=== PATIENT | female | born 1975 | race Caucasian/White ===

== ENCOUNTER → 2018-02-17 07:37 | Outpatient (CLI) | payer OTHER, SELFPAY ==
--- NOTE | 2018-02-17 07:38 | DI.MG.S_ITS ---
BILATERAL DIGITAL SCREENING MAMMOGRAM 3D/2D WITH CAD: 02/17/2018 CLINICAL: Routine screening. Baseline exam. No prior exams were available for comparison. The tissue of both breasts is heterogeneously dense. This may lower the sensitivity of mammography. Current study was also evaluated with a Computer Aided Detection (CAD) system. There is an asymmetry in the right breast middle depth outer region seen on the craniocaudal view only. There also is an asymmetry in the right breast middle depth upper region seen on the mediolateral oblique view only. No other significant masses, calcifications, or other findings are seen in either breast. IMPRESSION: INCOMPLETE: NEEDS ADDITIONAL IMAGING EVALUATION The asymmetry in the right breast middle depth outer region seen on the craniocaudal view only is indeterminate. Additional views with possible ultrasound are recommended. The asymmetry in the right breast middle depth upper region seen on the mediolateral oblique view only is indeterminate. Additional views with possible ultrasound are recommended. This exam was interpreted at Station ID: [id number]. NOTE: For mammograms, a report in lay terms will be sent to the patient. Approximately 15% of breast malignancies will not be visualized mammographically. In the management of a palpable breast mass, a negative mammogram must not discourage biopsy of a clinically suspicious lesion. Electronically Signed By: Christiano Case M.D. ecl/:02/17/2018 21:41:21 letter sent: Additional Imaging Needed ACR BI-RADS Category 0: Incomplete 3340F
== END ==
PROVIDERS: Family Provider Family Medicine; PCP Family Medicine; Visit Provider Family Medicine
DX: Z12.31 Encounter for screening mammogram for malignant neoplasm of breast (principal)
CPT/HCPCS: 77063; 77067

== ENCOUNTER → 2018-03-02 13:44 | Outpatient (CLI) | payer OTHER, SELFPAY ==
--- NOTE | 2018-03-02 13:46 | DI.US.S_ITS ---
ULTRASOUND OF RIGHT BREAST: 03/02/2018 CLINICAL: Follow up from addtional views. Comparison is made to exams dated: 02/17/2018 mammogram and 03/02/2018 mammogram - [facility]. Real-time and Doppler ultrasound of the right breast were performed. Valenzuela scale images of the real-time examination were reviewed. There is no ultrasound correlate mass or abnormality for the persistent focal asymmetry with calcifications in the right breast upper outer aspect middle depth seen on diagnostic mammography of 03/02/2018. No other masses or abnormalities were identified on targeted ultrasound of the upper outer right breast. IMPRESSION: SUSPICIOUS OF MALIGNANCY - FOLLOW-UP RECOMMENDED 1) No ultrasound correlate mass or abnormality identified for the persistent focal asymmetry with calcifications in the right breast upper outer aspect middle depth seen on diagnostic mammography of 03/02/2018. A stereotactic or tomosynthesis guided biopsy is recommended. These results were discussed with the patient in person by attending radiologist Dr. Dougie Cleaning of [facility] at the time of the exam. This exam was interpreted at Station ID: [id number]. Electronically Signed By: Christiano Case M.D. ecl/:03/02/2018 17:20:34 letter sent: Biopsy Required Ultrasound BI-RADS: 4a Suspicious abnormality - low suspicion for malignancy
--- NOTE | 2018-03-02 13:46 | DI.MG.S_ITS ---
UNILATERAL RIGHT DIGITAL DIAGNOSTIC MAMMOGRAM 3D/2D WITH ADDITIONAL VIEWS: 03/02/2018 CLINICAL: Additional evaluation requested from prior study. [facility] The tissue of the right breast is heterogeneously dense. This may lower the sensitivity of mammography. There is a persistent focal asymmetry with calcifications in the right breast upper outer aspect middle depth, with calcifications best seen on RCC spot compression tomosynthesis image . No other significant masses or calcifications are seen in the breast. IMPRESSION: INCOMPLETE: NEEDS ADDITIONAL IMAGING EVALUATION 1) The focal asymmetry with calcifications in the right breast is indeterminate. A targeted ultrasound is recommended. If no ultrasound correlate is identified, then a stereotactic or tomosynthesis guided biopsy is recommended of this focal asymmetry. This exam was interpreted at Station ID: [id number]. NOTE: For mammograms, a report in lay terms will be sent to the patient. Approximately 15% of breast malignancies will not be visualized mammographically. In the management of a palpable breast mass, a negative mammogram must not discourage biopsy of a clinically suspicious lesion. Electronically Signed By: Christiano Case M.D. ecl/:03/02/2018 17:17:49 letter sent: Additional Imaging Needed ACR BI-RADS Category 0: Incomplete 3340F
== END ==
PROVIDERS: Family Provider Family Medicine; PCP Family Medicine; Visit Provider Family Medicine
DX: R92.1 Mammographic calcification found on diagnostic imaging of breast (principal)
CPT/HCPCS: 76642; 77065; G0279

== ENCOUNTER → 2019-03-01 16:16 | Outpatient (CLI) | payer OTHER, SELFPAY ==
--- NOTE | 2019-03-01 | DI.MG.S_ITS ---
BILATERAL DIGITAL SCREENING MAMMOGRAM 3D/2D WITH CAD: 03/01/2019 CLINICAL: Routine screening. Comparison is made to exams dated: 03/17/2018 stereotactic biopsy, 03/17/2018 mammogram - [facility] [place] [place], and 03/02/2018 mammogram [facility]. The tissue of both breasts is heterogeneously dense. This may lower the sensitivity of mammography. Current study was also evaluated with a Computer Aided Detection (CAD) system. No significant masses, calcifications, or other findings are seen in either breast. There has been no significant interval change. IMPRESSION: NEGATIVE There is no mammographic evidence of malignancy. A 1 year screening mammogram is recommended. This exam was interpreted at Station ID: [id number]. NOTE: For mammograms, a report in lay terms will be sent to the patient. Approximately 15% of breast malignancies will not be visualized mammographically. In the management of a palpable breast mass, a negative mammogram must not discourage biopsy of a clinically suspicious lesion. Electronically Signed By: Paulina kendall/celina:03/01/2019 17:12:09 letter sent: Normal Exam ACR BI-RADS Category 1: Negative 3341F
== END ==
PROVIDERS: PCP Family Medicine; Visit Provider Family Medicine
DX: Z12.31 Encounter for screening mammogram for malignant neoplasm of breast (principal)
CPT/HCPCS: 77063; 77067

== ENCOUNTER → 2020-03-27 16:38 | Outpatient (CLI) | payer BC, SELFPAY ==
--- NOTE | 2020-03-27 16:54 | DI.MG.S_ITS ---
Patient Name: AVERY LUU date: 1975 Sex: F Attending Physician: Danette Indications: Date: 03/27/2020 16:46 At the request of: BANDAR CHAVARRIA Procedure: MM screening mammo BI BILATERAL DIGITAL SCREENING MAMMOGRAM 3D/2D WITH CAD: 03/27/2020 CLINICAL: Routine screening. Comparison is made to exams dated: 03/01/2019 mammogram [facility], 03/17/2018 mammogram - [facility], 03/02/2018 mammogram, and 02/17/2018 mammogram [facility]. The tissue of both breasts is extremely dense, which lowers the sensitivity of mammography. Current study was also evaluated with a Computer Aided Detection (CAD) system. There is an oval equal density mass with an obscured and circumscribed margin in the right breast at 8 o'clock anterior depth. No other significant masses, calcifications, or other findings are seen in either breast. IMPRESSION: INCOMPLETE: NEEDS ADDITIONAL IMAGING EVALUATION The oval equal density mass in the right breast is indeterminate. Mediolateral and spot compression views as well as additional views with possible ultrasound are recommended. This exam was interpreted at Station ID: [id number]. NOTE: For mammograms, a report in lay terms will be sent to the patient. Approximately 15% of breast malignancies will not be visualized mammographically. In the management of a palpable breast mass, a negative mammogram must not discourage biopsy of a clinically suspicious lesion. Electronically Signed By: Donaldo gibson/celina:03/28/2020 08:22:34 letter sent: Additional Imaging Needed Continued Report - Page 2 of 2 Patient Name: AVERY LUU date: 1975 Sex: F Attending Physician: Danette Indications: Date: 03/27/2020 16:46 At the request of: BANDAR CHAVARRIA Procedure: MM screening mammo BI ACR BI-RADS Category 0: Incomplete 3340F
== END ==
PROVIDERS: PCP Family Medicine; Referring Provider Family Medicine; Visit Provider Family Medicine
DX: Z12.31 Encounter for screening mammogram for malignant neoplasm of breast (principal)
CPT/HCPCS: 77063; 77067

== ENCOUNTER → 2020-05-15 08:35 | Outpatient (CLI) | payer BC, SELFPAY ==
--- NOTE | 2020-05-15 | DI.MG.S_ITS ---
UNILATERAL RIGHT DIGITAL DIAGNOSTIC MAMMOGRAM 3D/2D WITH ADDITIONAL VIEWS: 05/15/2020 CLINICAL: Additional evaluation requested from prior study. Comparison is made to exams dated: 03/27/2020 mammogram, 03/01/2019 mammogram - [facility], 03/17/2018 stereotactic biopsy, and 03/17/2018 mammogram - [facility]. The tissue of right breast is extremely dense, which lowers the sensitivity of mammography. There is a 1 cm oval equal density mass with an obscured and circumscribed margin in the right breast at 9 o'clock anterior depth. This is seen in additional views. No other significant masses or calcifications are seen in the breast. IMPRESSION: INCOMPLETE: NEEDS ADDITIONAL IMAGING EVALUATION The 1 cm oval equal density mass in the right breast is indeterminate. An ultrasound is recommended. This exam was interpreted at Station ID: [id number]. NOTE: For mammograms, a report in lay terms will be sent to the patient. Approximately 15% of breast malignancies will not be visualized mammographically. In the management of a palpable breast mass, a negative mammogram must not discourage biopsy of a clinically suspicious lesion. SUMMARY: Targeted ultrasound is recommended for further evaluation and will be scheduled immediately following this exam. Electronically Signed By: Zain fair/celina:05/15/2020 16:13:12 ACR BI-RADS Category 0: Incomplete 3340F
--- NOTE | 2020-05-15 | DI.US.S_ITS ---
LIMITED ULTRASOUND OF RIGHT BREAST AND AXILLA: 05/15/2020 CLINICAL: Patient returns today to evaluate a focal asymmetry in the right breast. Comparison is made to exams dated: 03/27/2020 mammogram, 03/01/2019 mammogram - [facility], 03/17/2018 mammogram - [facility], 03/02/2018 ultrasound, and 05/15/2020 [facility] - [facility]. Color flow ultrasound of the right breast 9-10 o'clock, and axilla regions was performed. Valenzuela scale images of the real-time examination were reviewed. There is a 0.6 cm x 0.5 cm x 0.4 cm oval complicated cyst with a smooth internal wall in the right breast at 10 o'clock posterior depth 5 cm from the nipple. This oval complicated cyst is hypoechoic with internal echoes and posterior acoustic enhancement. This correlates as an incidental finding but was not seen on the prior mammogram. There also is a benign 0.9 cm x 0.9 cm x 0.4 cm oval simple cyst with a smooth internal wall in the right breast at 9 o'clock middle depth 4 cm from the nipple. This oval simple cyst is anechoic with posterior acoustic enhancement. This correlates with mammography findings. No significant abnormalities were seen sonographically in the right axilla. IMPRESSION: PROBABLY BENIGN The 0.6 cm x 0.5 cm x 0.4 cm oval complicated cyst in the right breast at 10 o'clock posterior depth is probably benign. A follow-up ultrasound in 6 months is recommended. The 0.9 cm x 0.9 cm x 0.4 cm oval simple cyst in the right breast at 9 o'clock middle depth is benign. A follow-up right ultrasound in 6 months is recommended to demonstrate stability. This exam was interpreted at Station ID: [id number]. Electronically Signed By: Zain fair/celina:05/15/2020 16:18:12 letter sent: Followup Recommended Ultrasound BI-RADS: 3 Probably benign
== END ==
PROVIDERS: PCP Family Medicine; Referring Provider Family Medicine; Visit Provider Family Medicine
DX: R92.8 Other abnormal and inconclusive findings on diagnostic imaging of breast (principal); N60.01 Solitary cyst of right breast
CPT/HCPCS: 76642; 77065; G0279

== ENCOUNTER → 2020-11-26 14:45 | Outpatient (CLI) | payer BC, SELFPAY ==
--- NOTE | 2020-11-26 14:46 | DI.US.S_ITS ---
PROCEDURE: US BREAST RT LIMITED COMPARISON: [facility], BREAST RT LIMITED, 05/15/2020, 9:13. INDICATIONS: 6 MONTH FOLLOW-UP FINDINGS: IMPRESSION: Dictated by: Indio Hicks M.D. on 11/26/2020 at 15:59 Approved by: Indio Hicks M.D. on 11/26/2020 at 16:03
--- NOTE | 2020-11-26 14:58 | DI.US.S_ITS ---
Date: 11/26/2020 14:58 At the request of: BANDAR CHAVARRIA Procedure: US breast RT limited ULTRASOUND OF RIGHT BREAST: 11/26/2020 CLINICAL: 6 month follow-up of cysts. Comparison is made to exams dated: 05/15/2020 mammogram, 05/15/2020 ultrasound, 03/27/2020 mammogram, 03/01/2019 mammogram - [facility], 03/17/2018 stereotactic biopsy, and 03/17/2018 mammogram - [facility]. Doppler ultrasound of the right breast was performed. Valenzuela scale images of the real-time examination were reviewed. There is a benign 0.7 cm x 0.6 cm x 0.3 cm oval simple cyst with a smooth internal wall in the right breast at 9 o'clock middle depth 4 cm from the nipple. This oval simple cyst is anechoic with posterior acoustic enhancement. This abnormality is decreased in size and correlates with mammography findings. There also is a stable benign 0.6 cm x 0.6 cm x 0.4 cm oval complicated cyst with a smooth internal wall in the right breast at 10 o'clock posterior depth 5 cm from the nipple. This oval complicated cyst is hypoechoic with internal echoes and posterior acoustic enhancement. This correlates as an incidental finding but was not seen on the prior mammogram. IMPRESSION: BENIGN There is no sonographic evidence of malignancy. The 0.7 cm x 0.6 cm x 0.3 cm oval simple cyst in the right breast at 9 o'clock middle depth is benign. The stable 0.6 cm x 0.6 cm x 0.4 cm oval complicated cyst in the right breast at 10 o'clock posterior depth is benign. Return to annual mammogram screening which is due in 6 months is recommended. This exam was interpreted at Station ID: [id number]. Electronically Signed By: Indio Hicks acr/:11/26/2020 16:03:03 letter sent: Normal Exam Ultrasound BI-RADS: 2 Benign
== END ==
PROVIDERS: PCP Family Medicine; Referring Provider Family Medicine; Visit Provider Family Medicine
DX: R92.8 Other abnormal and inconclusive findings on diagnostic imaging of breast (principal); N60.01 Solitary cyst of right breast
CPT/HCPCS: 76642

== ENCOUNTER → 2021-09-04 08:10 | Outpatient (CLI) | payer OTHER, SELFPAY ==
--- NOTE | 2021-09-04 | DI.MG.S_ITS ---
BILATERAL DIGITAL SCREENING MAMMOGRAM 3D/2D WITH CAD: 09/04/2021 CLINICAL: Routine screening. Comparison is made to exams dated: 05/15/2020 mammogram, 03/27/2020 mammogram, and 03/01/2019 mammogram - [facility]. The tissue of both breasts is heterogeneously dense. This may lower the sensitivity of mammography. Current study was also evaluated with a Computer Aided Detection (CAD) system. No significant masses, calcifications, or other findings are seen in either breast. There has been no significant interval change. IMPRESSION: NEGATIVE There is no mammographic evidence of malignancy. A 1 year screening mammogram is recommended. This exam was interpreted at Station ID: [id number]. NOTE: For mammograms, a report in lay terms will be sent to the patient. Approximately 15% of breast malignancies will not be visualized mammographically. In the management of a palpable breast mass, a negative mammogram must not discourage biopsy of a clinically suspicious lesion. Electronically Signed By: Jeffrey richardson/celina:09/04/2021 09:56:25 letter sent: Normal Exam ACR BI-RADS Category 1: Negative 3341F
== END ==
PROVIDERS: PCP Family Medicine; Referring Provider Family Medicine; Visit Provider Family Medicine
DX: Z12.31 Encounter for screening mammogram for malignant neoplasm of breast (principal)
CPT/HCPCS: 77063; 77067

== ENCOUNTER → 2023-02-03 12:59 | Outpatient (CLI) | payer OTHER, SELFPAY ==
--- NOTE | 2023-02-03 13:00 | DI.MG.S_ITS ---
BILATERAL DIGITAL SCREENING MAMMOGRAM 3D/2D WITH CAD: 02/03/2023 CLINICAL: Routine screening. Comparison is made to exams dated: 09/04/2021 mammogram, 03/27/2020 mammogram, and 03/01/2019 mammogram - [facility]. Both breasts are heterogeneously dense, which may obscure small masses (category c / 51-75% glandular tissue). Current study was also evaluated with a Computer Aided Detection (CAD) system. No significant masses, calcifications, or other findings are seen in either breast. There has been no significant interval change. IMPRESSION: NEGATIVE There is no mammographic evidence of malignancy. A 1 year screening mammogram is recommended. Based on the Tyrer Cuzick model (a risk assessment model) the patient's lifetime risk is 15.8% and her 10 year risk is 3.6%. According to the ACR, ACS, and NCCN guidelines, an annual breast MRI exam along with mammogram is recommended if the patient's lifetime risk is 20% or greater. This exam was interpreted at Station ID: [id number]. NOTE: For mammograms, a report in lay terms will be sent to the patient. Approximately 15% of breast malignancies will not be visualized mammographically. In the management of a palpable breast mass, a negative mammogram must not discourage biopsy of a clinically suspicious lesion. Electronically Signed By: Gigi kennedy/celina:02/03/2023 14:16:50 letter sent: Normal Exam ACR BI-RADS Category 1: Negative 3341F
== END ==
PROVIDERS: PCP Family Medicine; Referring Provider Family Medicine; Visit Provider Family Medicine
DX: Z12.31 Encounter for screening mammogram for malignant neoplasm of breast (principal)
CPT/HCPCS: 77063; 77067

== ENCOUNTER → 2024-02-23 13:30 | Outpatient (CLI) | payer OTHER, SELFPAY ==
--- NOTE | 2024-02-23 13:32 | DI.MG.S_ITS ---
BILATERAL DIGITAL SCREENING MAMMOGRAM 3D/2D WITH CAD: 02/23/2024 CLINICAL: Routine screening. Comparison is made to exams dated: 02/03/2023 mammogram, 09/04/2021 mammogram, and 03/27/2020 mammogram - [facility]. Both breasts are heterogeneously dense, which may obscure small masses (category c / 51-75% glandular tissue). Current study was also evaluated with a Computer Aided Detection (CAD) system. No significant masses, calcifications, or other findings are seen in either breast. There has been no significant interval change. IMPRESSION: NEGATIVE There is no mammographic evidence of malignancy. A 1 year screening mammogram is recommended. Based on the Tyrer Cuzick model (a risk assessment model) the patient's lifetime risk is 15.8% and her 10 year risk is 3.8%. According to the ACR, ACS, and NCCN guidelines, an annual breast MRI exam along with mammogram is recommended if the patient's lifetime risk is 20% or greater. This exam was interpreted at Station ID: [id number]. NOTE: For mammograms, a report in lay terms will be sent to the patient. Approximately 15% of breast malignancies will not be visualized mammographically. In the management of a palpable breast mass, a negative mammogram must not discourage biopsy of a clinically suspicious lesion. Electronically Signed By: Zain fair/celina:02/23/2024 15:57:02 letter sent: Normal Exam ACR BI-RADS Category 1: Negative 3341F
== END ==
PROVIDERS: PCP Family Medicine; Referring Provider Family Medicine; Visit Provider Family Medicine
DX: Z12.31 Encounter for screening mammogram for malignant neoplasm of breast (principal); R92.333 Mammographic heterogeneous density, bilateral breasts
CPT/HCPCS: 77063; 77067

== ENCOUNTER 2024-08-17 09:37 | Day surgery (SDC) | payer OTHER, SELFPAY ==
--- NOTE | 2024-08-17 | PATH_ITS ---
[facility] Accession Number: [id number] No. of containers..01 Tissue . 01 Material submitted: . colon - ASCENDING POLYP . 01 Diagnosis: ASCENDING COLON POLYP: Sessile serrated adenoma. MRV 08/21/2024 1240 Local . 01 Electronically signed: . Ricky Christensen MD, PhD, Pathologist NPI- [id number] . 01 Gross description: . Received in formalin with two patient identifiers and 1. Ascending colon polyp, are four marshall soft tissue fragments, 0.2-0.9 cm in greatest dimension, submitted in A1. ([id number]) /MRV 08/18/2024 1532 Local . 01 Pathologist provided ICD-10: D12.2 . 01 CPT . 598886 Specimen Comment: A courtesy copy of this report has been sent to [phone] Performed at: [address] [id number] MD Donaldo Hernández MD Phone: [phone]
[2024-08-17 10:04] VITALS: BP 131/80; PULSE 86; RESP 16; TEMP 36.6; O2SAT 98
--- NOTE | 2024-08-17 10:08 | P.HP_ITS ---
History of Present Illness History of Present Illness Date Patient Seen: 08/17/24 Time Patient Seen: 10:08 Chief complaint: Colonoscopy Narrative: Genet is a 49-year-old woman here for her first screening colonoscopy. No family history of colon cancer. [facility] Medical History (Updated 08/17/24 @ 10:08 by Art Black MD) Hayfever Asthma Anxiety Migraine headache (04/23/15) Surgical History (Updated 04/13/18 @ 13:41 by Shante Jennings) Anesthesia complication Status post debridement of bone spur (1992) Status post delivery Family History (Updated 04/13/18 @ 13:53 by Shante Jennings) Grandmother Cancer Diabetes mellitus Grandfather Stroke Grandmother Heart disease Hypertension Mental health problem Daughter Leukemia Father No problems noted. Grandfather Diabetes mellitus Mother No problems noted. Sister No problems noted. Daughter No problems noted. Social History Smoking Status: Never smoker Meds Home Medications and Allergies Home Medications Medication Instructions Recorded Confirmed Type omeprazole 20 mg capsule,delayed 20 mg PO QAM ##0 05/15/11 12/30/17 History release lorazepam 1 mg tablet 1 mg PO Q4HP #20 tabs 01/19/17 12/30/17 Rx sertraline 100 mg tablet 100 mg PO QDAY #90 tabs 10/14/17 12/30/17 Rx lactobacillus combination no.8 3 3,000 mmu cells PO DAILY 12/30/17 12/30/17 History billion cell capsule (Adult Probiotic) lorazepam 1 mg tablet 1 mg PO Q8H PRN anxiety #20 tabs 12/30/17 Rx sertraline 100 mg tablet 100 mg PO Q24H #90 tabs 12/30/17 Rx albuterol sulfate 90 mcg/actuation See Rx Instructions .Route Q4H PRN 12/31/17 08/17/24 Rx aerosol inhaler (Ventolin HFA) shortness of breath #8.5 grams peg 3350-sod sulf,whygi-txn-wlk 1,000 ml PO DIRECTED #2,000 mL 07/06/24 Rx 178.7-7.3-0.5-1.12-0.9 gram oral soln (Suflave) Allergies Allergy/AdvReac Type Severity Reaction Status Date / Time No Known Drug Allergies Allergy Verified 05/31/18 10:21 Exam Const General: No acute distress Resp Effort & Inspection: normal respiratory effort Assessment & Plan Assessment and plan (1) Colon cancer screening: Status: Acute Plan Colonoscopy Time-Based Coding :: [TOTAL MINUTES] spent with patient and on the chart (including review of chart, obtaining history, exam, reviewing outside data, placing orders, documenting exam and treatment plan, and counseling patient) on [DATE].
[2024-08-17] MEDS: SODIUM CHLORIDE 0.9% 1,000 ML 150 ML IV (10:13)
[2024-08-17 11:16] VITALS: BP 115/64; PULSE 82; RESP 17; TEMP 37.6; O2SAT 97
--- NOTE | 2024-08-17 11:17 | PM.OP.COLON ---
Operative Date/Time/Diagnoses Date of procedure: 08/17/24 Time of procedure: 11:18 Pre-op diagnosis: Colon cancer screening Post-op diagnosis: same Procedure & Clinicians Study performed: Colonoscopy Same procedure as scheduled: Yes Surgeon: Art Black Procedure Notes Procedure in detail: Surgeon: Art Black MD Anesthesia: Roseanne Mcnair CRNA Procedure: The patient was brought to the endoscopy suite, placed in left lateral decubitus position. The patient was connected to monitoring devices. A time-out was performed. Sedation was administered. Once the patient was adequately sedated, a digital rectal exam was performed and was normal. The scope was then inserted and advanced to the cecum where the appendiceal orifice was identified and photographed. The scope was then slowly withdrawn over greater than 6 minutes. The mucosa was thoroughly inspected. There was 1 cm polyp ascending colon removed with cold snare The scope was retroflexed in the rectum. No other abnormalities were found. The scope was straightened and removed. The patient was awakened and brought to recovery. Scope withdrawal time: 10 minutes Sedation time: 16 minutes EBL: 2 mL Findings: 1 cm ascending colon polyp Post-procedure Disposition: PACU
[2024-08-17 11:21] VITALS: BP 124/70; PULSE 73; RESP 16; O2SAT 99
[2024-08-17 11:26] VITALS: BP 125/78; PULSE 74; RESP 14; TEMP 36.7; O2SAT 100
[2024-08-17 11:27] VITALS: BP 119/74; PULSE 68; RESP 16; O2SAT 100
== END 2024-08-17 11:45 | disposition home or self-care (01) ==
PROVIDERS: PCP Family Medicine; Referring Provider Surgery; Visit Provider Surgery
PROC: 0DJD8ZZ Inspection of Lower Intestinal Tract, Via Natural or Artificial Opening Endoscopic (ICD-10-PCS; CPT 45378; principal; 2024-08-17 10:45)
DX: Z12.11 Encounter for screening for malignant neoplasm of colon (principal); D12.2 Benign neoplasm of ascending colon; F41.9 Anxiety disorder, unspecified; K21.9 Gastro-esophageal reflux disease without esophagitis
CPT/HCPCS: 45385; J2704

== ENCOUNTER → 2024-10-03 14:11 | Outpatient (CLI) | payer OTHER, SELFPAY ==
--- NOTE | 2024-10-03 14:12 | DI.US.S_ITS ---
PROCEDURE: US PELVIC COMPLETE INDICATIONS: dysmenorrhea TECHNIQUE: Real-time scanning was performed of the pelvic organs, with image documentation. Additional endovaginal scanning was necessary due to incomplete visualization of the adnexal and endometrial structures by transabdominal scanning. COMPARISON: None. FINDINGS: Uterus: Uterus is retroverted and normal in size at 7 x 4.7 x 4.1 cm. The myometrium is heterogeneous. The endometrium measures 5 mm combined thickness. No fibroids seen. Small nabothian cysts. Ovaries: The right ovary measures 2.4 x 1.9 x 1.3 cm, with a calculated ovarian volume of 3 cc. The left ovary measures 2 x 1.5 x 1.4 cm, with a calculated ovarian volume of 2 cc. The ovaries have a normal sonographic appearance. Less than 12 follicles can be seen in each ovary. No adnexal masses are seen. Other: No pathologic free abdominal or pelvic fluid. IMPRESSION: 1. Endometrium measures 5 mm. No fibroids seen. 2. No significant ovarian cysts. We strive to produce accurate, complete, and clear reports of imaging services. To assist us in improving patient care, this report was composed using standard report templates and voice recognition software. Therefore, it may contain abnormal punctuation, insertions and/or omissions. Occasional wrong-word or sound-alike substitutions may occur. Though we review the report and make efforts to correct it, we do recommend that the report be read carefully in proper context to recognize any text inaccuracies. Dictated by: Saurav Marlow M.D. on 10/04/2024 at 14:45 Approved by: Saurav Marlow M.D. on 10/04/2024 at 15:00
== END ==
PROVIDERS: PCP Family Medicine; Referring Provider Family Medicine; Visit Provider Family Medicine
DX: N92.1 Excessive and frequent menstruation with irregular cycle (principal); N94.6 Dysmenorrhea, unspecified; N88.8 Other specified noninflammatory disorders of cervix uteri
CPT/HCPCS: 76830; 76856